=== PATIENT | female | born 1980 | race Hispanic/Latino ===

== ENCOUNTER 2019-02-20 17:48 | Emergency (ER) | payer SELFPAY ==
[2019-02-20] MEDS ORDERED: HYDROcodone/Acetaminophen 10/325 mg Tablet ONE (18:29)
[2019-02-20 18:38] LABS: #Eosinphils 0.3 thou/uL (0.0-0.7); #Lymphocytes 2.3 thou/uL (1.20-3.40); #Monocytes 0.8 thou/uL (0.11-0.59); #Neutrophils 6.9 thou/uL (1.40-6.50); %Basophils 0.4 % (0.0-1.0); %Eosinophils 2.5 % (0.0-10.0); %Lymphocytes 22.4 % (21.0-51.0); %Monocytes 7.6 % (0.0-10.0); Hemoglobin 11.8 g/dL (12.0-16.0); Mean Corpuscular HGB CONC 32.4 g/dL (32.0-36.0); Mean Corpuscular Hemoglobin 24.8 pg (27.0-31.0); Mean Corpuscular Volume 76.5 fL (78.0-98.0); Mean Platelet Volume 9.3 fL (7.4-10.4); Platelet Count 254 thou/uL (130-400); RBC Distribution Width 15.5 % (11.5-14.5); Red Blood Cell (RBC) Count 4.75 mill/uL (4.20-5.40); White Blood Cell (WBC) Count 10.4 thou/uL (4.8-10.8)
--- NOTE | 2019-02-20 18:51 | RAD ---
Portable frontal chest radiograph: 02/20/2019 COMPARISON: None HISTORY: Chest pain FINDINGS: Lungs are clear. Heart and mediastinal contours appear within normal limits. IMPRESSION: No acute findings.
[2019-02-20 19:01] LABS: ALT (SGPT) 23 U/L (8-55); AST (SGOT) 17 U/L (5-34); Albumin 4.1 g/dL (3.5-5.0); Alkaline Phosphatase 86 U/L (40-150); Anion Gap 13 mmol/L (10-20); BUN (Urea Nitrogen) 18 mg/dL (7.0-18.7); Bilirubin, Total 0.2 mg/dL (0.2-1.2); CK (CPK) 56 U/L (29-168); Calc. Creatinine Clearance 0 mL/min (70-130); Calcium 9.4 mg/dL (7.8-10.44); Carbon Dioxide 24 mmol/L (22-29); Chloride 103 mmol/L (98-107); Estimated GFR-MDRD 81; Globulin 3.5 g/dL (2.4-3.5); Glucose 219 mg/dL (70-105); Potassium 4.1 mmol/L (3.5-5.1); Protein, Total 7.6 g/dL (6.0-8.3); Sodium 136 mmol/L (136-145)
--- NOTE | 2019-02-22 15:45 | EKG ---
Test Reason : Blood Pressure : / mmHG Vent. Rate : 091 BPM Atrial Rate : 091 BPM P-R Int : 114 ms QRS Dur : 072 ms QT Int : 342 ms P-R-T Axes : 029 -08 003 degrees QTc Int : 420 ms Normal sinus rhythm Voltage criteria for left ventricular hypertrophy Abnormal ECG Confirmed by OSITO RAMIREZ MD ([id number]), assistant editor MENDY JOHNSON ([id number]) on 02/22/2019 3:45:05 PM Referred By: Confirmed By:OSITO RAMIREZ MD
== END 2019-02-20 20:10 | disposition home or self-care (01) ==
LOC: ERS 17:48
DX: R07.89 Other chest pain (principal); N64.4 Mastodynia; E11.9 Type 2 diabetes mellitus without complications; Z79.84 Long term (current) use of oral hypoglycemic drugs
CPT/HCPCS: 36415; 71045; 80053; 82550; 84484; 85025; 93005

== ENCOUNTER 2019-08-25 20:45 | Emergency (ER) | payer SELFPAY | END 2019-08-25 21:07 | disposition home or self-care (01) | LOC: ERS 20:45 | DX: K11.20 Sialoadenitis, unspecified (principal); E11.9 Type 2 diabetes mellitus without complications | CPT/HCPCS: 99283 ==

== ENCOUNTER 2020-11-14 13:48 | Outpatient (CLI) | payer OTHER | END 2020-11-14 13:49 | disposition home or self-care (01) | LOC: BICRAD 13:48 | PROVIDERS: ATTEND Family Medicine | DX: M79.671 Pain in right foot (principal) ==

== ENCOUNTER 2024-07-04 16:11 | Emergency (ER) | payer SELFPAY | END 2024-07-04 19:16 | disposition home or self-care (01) | LOC: ERS 16:11 | DX: M79.632 Pain in left forearm (principal); E11.9 Type 2 diabetes mellitus without complications | CPT/HCPCS: 99283 ==